=== PATIENT | male | born 1990 | race Caucasian/White ===

== ENCOUNTER 2018-10-18 10:26 | Emergency (ER) | payer SELFPAY ==
[~2018-10-18] VITALS: Ht 175.3 cm; Wt 88.2 kg
[2018-10-18 10:37] VITALS: Ht 175.3 cm; Wt 88.2 kg
[2018-10-18] MEDS ORDERED: ZOFRAN ODT4 MG/UDTAB PO (12:02)
[2018-10-18 12:15] VITALS: BP 135/81
== END 2018-10-18 12:16 | disposition home or self-care (01) ==
LOC: D.ER 10:26
DX: G43.909 Migraine, unspecified, not intractable, without status migrainosus (principal); F17.200 Nicotine dependence, unspecified, uncomplicated

== ENCOUNTER 2019-02-18 19:39 | Emergency (ER) | payer SELFPAY ==
[~2019-02-18] VITALS: Ht 175.3 cm; Wt 90.9 kg
[~2019-02-18 19:39] MED LIST: ZOFRAN ODT4 MG/UDTAB PO
[2019-02-18 20:00] VITALS: Ht 175.3 cm; Wt 90.9 kg
[2019-02-18] MEDS ORDERED: TORADOL10 MG PO (22:01)
[2019-02-18] MEDS ORDERED: CLEOCIN HCL300 MG PO (22:01)
[2019-02-18 22:23] VITALS: BP 136/80
== END 2019-02-18 22:25 | disposition home or self-care (01) ==
LOC: D.ER 19:39
DX: K08.89 Other specified disorders of teeth and supporting structures (principal)